=== PATIENT | male | born 1985 | race Caucasian/White ===

== ENCOUNTER 2020-08-20 15:26 | Emergency (ER) | payer OTHER ==
[~2020-08-20] VITALS: Ht 175.3 cm; Wt 103.0 kg
[2020-08-20 15:34] VITALS: Ht 175.3 cm; Wt 103.0 kg
[2020-08-20 16:39] VITALS: BP 145/75
== END 2020-08-20 16:39 | disposition home or self-care (01) ==
LOC: ED 15:26
DX: G51.0 Bell's palsy (principal)

== ENCOUNTER 2020-08-28 19:23 | Emergency (ER) | payer OTHER ==
[~2020-08-28] VITALS: Ht 175.3 cm; Wt 102.1 kg
[2020-08-28 19:29] VITALS: BP 156/88; Ht 175.3 cm; Wt 102.1 kg
[2020-08-28 20:00] LABS: microscopic required? NO
[2020-08-28 20:12] LABS: urine erythrocyte NEGATIVE (NEGATIVE)
[2020-08-28 20:44] LABS: AMPHETAMINE QUAL UR NONE DETECTED (See below)
== END 2020-08-28 20:42 | disposition home or self-care (01) ==
LOC: ED 19:23
PROVIDERS: Emergency Medicine
DX: F41.9 Anxiety disorder, unspecified (principal); G51.0 Bell's palsy

== ENCOUNTER 2020-08-31 15:09 | Emergency (ER) | payer OTHER, SELFPAY ==
[~2020-08-31] VITALS: Ht 175.3 cm; Wt 81.6 kg
[2020-08-31 15:10] VITALS: Ht 175.3 cm; Wt 81.6 kg
[2020-08-31 16:37] VITALS: BP 148/69
== END 2020-08-31 16:37 | disposition home or self-care (01) ==
LOC: ED 15:09
DX: F41.9 Anxiety disorder, unspecified (principal); R05 Cough

== ENCOUNTER 2020-09-11 15:08 | Emergency (ER) | payer OTHER ==
[~2020-09-11] VITALS: Ht 175.3 cm; Wt 99.8 kg
[2020-09-11 15:15] VITALS: Ht 175.3 cm; Wt 99.8 kg
[2020-09-11 16:22] VITALS: BP 134/83
== END 2020-09-11 16:22 | disposition home or self-care (01) ==
LOC: ED 15:08
DX: J02.9 Acute pharyngitis, unspecified (principal); I10 Essential (primary) hypertension

== ENCOUNTER 2020-09-13 15:50 | Emergency (ER) | payer OTHER ==
[~2020-09-13] VITALS: Ht 182.9 cm; Wt 100.7 kg
[2020-09-13 15:54] VITALS: Ht 182.9 cm; Wt 100.7 kg
[2020-09-13 17:17] LABS: BASOPHIL % 1.1 % (0.2-1.5); PLATELET COUNT 310 x10^3mcL (152-348); RED CELL DISTRIBUTION WIDTH 13.4 % (12.1-16.2)
[2020-09-13 17:39] LABS: CALCIUM 9.6 mg/dL (8.5-10.1); CARBON DIOXIDE 30.8 mmol/L (21-32); CHLORIDE SERUM 106 mmol/L (98-107); CREATININE SERUM 0.9 mg/dL (0.7-1.3); GFR1 > 60 mL/min; GLUCOSE SERUM 94 mg/dL (74-106); POTASSIUM SERUM 4.2 mmol/L (3.5-5.1); SODIUM SERUM 141 mmol/L (136-145)
[2020-09-13 17:43] LABS: ALKALINE PHOSPHATASE 87 U/L (46-116); ALT/SGPT 100 U/L (16-63); AST/SGOT 40 U/L (15-37); BILIRUBIN TOTAL 0.32 mg/dL (0.20-1.00); TOTAL PROTEIN, SERUM 7.5 g/dL (6.4-8.2)
[2020-09-13 18:33] VITALS: BP 125/74
== END 2020-09-13 18:34 | disposition home or self-care (01) ==
LOC: ED 15:50
PROVIDERS: Emergency Medicine
DX: R07.89 Other chest pain (principal); R05 Cough; I10 Essential (primary) hypertension; G51.0 Bell's palsy

== ENCOUNTER 2020-09-23 17:00 | Emergency (ER) | payer OTHER ==
[~2020-09-23] VITALS: Ht 177.8 cm; Wt 98.9 kg
[2020-09-23 17:12] VITALS: Ht 177.8 cm; Wt 98.9 kg
[2020-09-23] MEDS ORDERED: AMBIEN5 MG PO ×2 (17:48→18:09)
[2020-09-23 18:55] VITALS: BP 133/78
== END 2020-09-23 18:55 | disposition home or self-care (01) ==
LOC: ED 17:00
DX: F43.22 Adjustment disorder with anxiety (principal); G47.00 Insomnia, unspecified; I10 Essential (primary) hypertension

== ENCOUNTER 2020-09-27 20:20 | Emergency (ER) | payer OTHER ==
[~2020-09-27] VITALS: Ht 175.3 cm; Wt 99.3 kg
[~2020-09-27 20:20] MED LIST: AMBIEN5 MG PO
[2020-09-27] MEDS ORDERED: CORTIZONE-10 1%56 GM TOP (21:45)
[2020-09-27] MEDS ORDERED: LEADER LORATADI10 MG PO (21:45)
[2020-09-27] MEDS ORDERED: PRE20 PO (21:45)
[2020-09-27 22:00] VITALS: BP 136/95
== END 2020-09-27 22:00 | disposition home or self-care (01) ==
LOC: ED 20:20
DX: R21 Rash and other nonspecific skin eruption (principal); I10 Essential (primary) hypertension; F17.210 Nicotine dependence, cigarettes, uncomplicated
CPT/HCPCS: J7512; Q0163